=== PATIENT | male | born 1965 | race African-American/Black ===

== ENCOUNTER 2020-02-24 19:49 | Emergency (ER) | payer OTHER ==
[2020-02-24 19:56] VITALS: BP 148/92
[2020-02-24] MEDS ORDERED: LIDOCAINE 1% INJ (10 MG/ML) 10 ML MDV INJ ONE (20:01)
[2020-02-24] MEDS ORDERED: DIPH/PERTUSS(ACELL)/TETANUS VAC/PF 0.5 ML SYR (>=10YO) IM ONE (20:03)
--- NOTE | 2020-02-24 20:17 | ER Document Report ---
HPI - HPI Patient complains to provider of: Foreign body to finger Time Seen by Provider: 02/24/20 19:56 Onset: Just prior to arrival Pain Level: 3 Context: This 54-year-old male who got a fishhook stuck in his index finger just prior to arrival today while on a fishing boat it is particularly the right index finger he does not know when his last known tetanus shot was. Associated Symptoms: None Exacerbated by: Denies Past Medical History - General Information source: Patient - Social History Smoking Status: Never Smoker Chew tobacco use (# tins/day): No Frequency of alcohol use: None Drug Abuse: None Family History: None - Past Medical History Cardiac Medical History: Reports: Hx Hypertension Vertical Provider Document - CONSTITUTIONAL Agree With Documented VS: Yes - HEENT HEENT: Atraumatic, Conjuctival Injection, Normocephalic, PERRLA - NECK Neck: Normal Inspection, Supple - RESPIRATORY Respiratory: Breath Sounds Normal - CARDIOVASCULAR Cardiovascular: Regular Rate, Regular Rhythm - GI/ABDOMEN Gastrointestinal: Abdomen Soft - REPRODUCTIVE Male Genitalia: Normal Inspection - BACK Back: Normal Inspection - MUSCULOSKELETAL/EXTREMETIES Musculoskeletal/Extremeties: MAEW - DERM Integumentary: Warm, Dry Notes: There is a fishhook came out of the palmar surface of the left index finger distal to the DIP. Course - Vital Signs Vital signs: Temp Pulse Resp BP Pulse Ox 98.4 F 67 16 148/92 H 100 02/24/20 19:57 02/24/20 19:55 02/24/20 19:55 02/24/20 19:55 02/24/20 19:55 Procedures - Incision and Drainage Left Volar Hand Time completed: 10:00 - Left index finger fishhook removal to the distal tuft Type: Simple Anesthetic type: 1% Lidocaine Blade size: Other - The fishhook was backed out with a #18 blade over the michael of the hook. I&D procedure: Betadine prep applied, Sterile dressing applied Incision Method: Incision made with needle Notes: 02/24/20 20:29 The fishhook was removed using the needle technique with an 18-gauge over the michael and exuded from the same hole that he came through patient's tetanus status was updated. Patient will be put on antibiotics soak the wound 4 to 5 x 1 a day in warm water follow-up PMD in 2 to 3 days. Discharge - Discharge Clinical Impression: Fish hook injury of hand Qualifiers: Encounter type: initial encounter Laterality: left Qualified Code(s): S69.92XA - Unspecified injury of left wrist, hand and finger(s), initial encounter Condition: Good Disposition: HOME, SELF-CARE Instructions: Foreign Body ([facility]) Additional Instructions: Warm soaks 4-5 times a day. Follow-up with private doctor in 1 to 2 days for final radiology readings please return to the emergency room for any change worsening condition. Follow up with private M.D. for all other routine health care needs. Prescriptions: Amoxicillin/Potassium Clav [Augmentin 875-125 Tablet] 1 tab PO Q12 #20 tablet
== END 2020-02-24 20:39 | disposition home or self-care (01) ==
LOC: ER 19:49
DX: S61.240A Puncture wound with foreign body of right index finger without damage to nail, initial encounter (principal); W26.8XXA Contact with other sharp object(s), not elsewhere classified, initial encounter; Y92.814 Boat as the place of occurrence of the external cause; Z23 Encounter for immunization
CPT/HCPCS: 90471; 90715; 99283